=== PATIENT | female | born 1950 | race Asian ===

== ENCOUNTER → 2016-11-24 | Outpatient (CLI) | payer MEDICARE, BC ==
[2005-06-16 09:30] VITALS: TEMP 97.2
[~2016-11-24] MED LIST: ANTIVERT 25MG25 MG PO; COZAAR 25MG25 MG/TAB PO; DIABETA 5MG5 MG/TAB PO; HCTZ12.5TAB PO; PHENERGAN 25 TA25 MG PO; UNABLE
== END ==
LOC: MC.RAD 10:43
DX: Z12.31 Encounter for screening mammogram for malignant neoplasm of breast (principal)

== ENCOUNTER → 2017-12-24 | Outpatient (CLI) | payer MEDICARE, BC ==
[2005-06-16 09:30] VITALS: TEMP 97.2
== END ==
LOC: MC.RAD 14:12
DX: Z12.31 Encounter for screening mammogram for malignant neoplasm of breast (principal)

== ENCOUNTER 2017-12-27 23:01 | Inpatient (IN) | payer MEDICARE, BC ==
[~2017-12-27] VITALS: Ht 157.5 cm; Wt 57.0 kg
[2017-12-27] MEDS ORDERED: LIPITOR20 MG PO (23:16)
[2017-12-27] MEDS ORDERED: GLUCOTROL10 MG PO (23:16)
[2017-12-27] MEDS ORDERED: COZAAR 50MG50 MG/TAB PO (23:16)
[2017-12-27] MEDS ORDERED: ASPIRIN 81M81 MG/TA2 PO (23:17)
[2017-12-27] MEDS ORDERED: GLUCOPHAGE500 MG/TAB PO (23:17)
[2017-12-27 23:34] LABS: BASO % 0.4 % (0.0-2.0); EOS # 0.1 (0.0-0.7); EOS % 0.9 % (0-4.0); GRAN # 7.3 (1.4-6.5); GRAN % 68.8 % (42.2-75.2); HEMATOCRIT 39.3 % (37.0-47.0); HEMOGLOBIN 13.5 g/dl (12.5-16.0); LYMPH # 2.4 (1.2-3.4); LYMPH % 23.1 % (20.0-51.0); MEAN CELL VOLUME 85 fl (80.0-100.0); MEAN CORPUSCULAR HEMOGLOBIN 29 pg (27.0-31.0); MEAN CORPUSCULAR HGB CONC 34 g/dl (33.0-37.0); MEAN PLATELET VOLUME 10.1 fl (7.4-10.4); MONO # 0.7 (0.1-0.6); MONO % 6.5 % (1.7-9.3); PLATELET COUNT 290 K/mm3 (130-400); RED BLOOD COUNT 4.62 M/mm3 (4.10-5.30); REDCELL DISTRIBUTION WIDTH-CV 12.5 % (11.5-14.5)
[2017-12-28] VITALS (12 sets, daily range): BP systolic 90–142; BP diastolic 52–73; PULSE 79–110; TEMP 98–99.3
[2017-12-28 00:01] LABS: ALANINE AMINOTRANSFERASE 52 U/L (9-52); ALBUMIN 4.5 gm/dL (3.5-5.0); ALKALINE PHOSPHATASE 142 U/L (50-136); ANION GAP 14 mmol/L (7-16); AST,SGOT 34 U/L (15-37); BILIRUBIN,TOTAL 0.4 mg/dL (0.0-1.0); BLOOD UREA NITROGEN 15 mg/dL (7-17); C-REACTIVE PROTEIN 0.6 mg/dL (0.0-0.9); CALCIUM 10.1 mg/dL (8.4-10.2); CARBON DIOXIDE 30 mmol/L (22-30); CHLORIDE 96 mmol/L (98-107); CREATININE, serum 0.64 mg/dL (0.52-1.25); GLUCOSE 187 mg/dL (74-106); LIPASE 428 U/L (23-300); POTASSIUM 3.8 mmol/L (3.4-5.0); SODIUM 140 mmol/L (137-145); TOTAL PROTEIN 8.6 gm/dL (6.4-8.2)
[2017-12-28 00:10] LABS: TROPONIN-I < 0.012 ng/mL (0.000-0.034)
[2017-12-28 00:48] LABS: COLLECTION METHOD CLEAN CATCH
[2017-12-28 00:57] LABS: PH 7 (5-8); SQUAMOUS EPITHELIAL 0-2 /hpf; URINE APPEARANCE Clear; URINE BACTERIA None Seen /hpf; URINE BILIRUBIN Negative (NEGATIVE); URINE BLOOD Negative (NEGATIVE); URINE COLOR Straw; URINE GLUCOSE 1+ (NEGATIVE); URINE KETONE Negative (NEGATIVE); URINE LEUKOCYTE ESTERASE Negative (NEGATIVE); URINE NITRATE Negative (NEGATIVE); URINE PROTEIN(semi-quant) Negative (NEGATIVE); URINE RBC 0-2 /hpf; URINE UROBILINOGEN Negative (NEGATIVE)
[2017-12-28] MEDS ORDERED: ZYRTEC 10MG10 MG PO (03:20)
[2017-12-28] MEDS ORDERED: FLONASE SENSIM9.9 ML NS (03:20)
[2017-12-29 00:49] VITALS: BP 94/47; PULSE 98; TEMP 97.5
[2017-12-29 06:46] VITALS: BP 103/60; PULSE 92; TEMP 98.2
[2017-12-29 06:55] VITALS: BP 103/60; PULSE 92; TEMP 98.2
[2017-12-29 07:59] LABS: ALBUMIN 3.3 gm/dL (3.5-5.0); BILIRUBIN,TOTAL 0.6 mg/dL (0.0-1.0); CREATININE, serum 0.73 mg/dL (0.52-1.25); POTASSIUM 3.8 mmol/L (3.4-5.0); TOTAL PROTEIN 6.3 gm/dL (6.4-8.2)
[2017-12-29 11:17] VITALS: BP 144/86; PULSE 83; TEMP 99
[2017-12-29] MEDS ORDERED: NORCO 325 MG-51 TAB PO (12:41)
[2017-12-29] MEDS ORDERED: FLAGYL500 MG PO (12:42)
[2017-12-29] MEDS ORDERED: LEVAQUIN 750MG750 M1 PO (12:42)
[2017-12-29] MEDS ORDERED: COLACE 100100 MG/CAP PO (12:42)
[2017-12-29] MEDS ORDERED: MOTRIN 600600 MG/TAB PO (12:42)
[2017-12-29 15:11] VITALS: BP 151/83; PULSE 89; TEMP 98.7
== END 2017-12-29 15:45 | disposition home or self-care (01) | DRG 419 ==
LOC: COL.ER 23:01 → JCC 12-28 02:10
PROVIDERS: Emergency Medicine; Surgery
PROC: BF131ZZ Fluoroscopy of Gallbladder and Bile Ducts using Low Osmolar Contrast (ICD-10-PCS; 2017-12-28)
PROC: 0FT44ZZ Resection of Gallbladder, Percutaneous Endoscopic Approach (ICD-10-PCS; principal; 2017-12-28 14:30)
DX: K80.00 Calculus of gallbladder with acute cholecystitis without obstruction (principal); I10 Essential (primary) hypertension; E11.9 Type 2 diabetes mellitus without complications
CPT/HCPCS: J0694; J1100; J1170; J1956; J2270; J2370; J2405; J2543; J2704; J2710; J2765; J3010; J7030; Q9967

== ENCOUNTER → 2019-01-13 | Outpatient (CLI) | payer MEDICARE, BC ==
[~2019-01-13] MED LIST changes: +ASPIRIN 81M81 MG/TA2 PO; +COLACE 100100 MG/CAP PO; +COZAAR 50MG50 MG/TAB PO; +FLAGYL500 MG PO; +FLONASE SENSIM9.9 ML NS; +GLUCOPHAGE500 MG/TAB PO; +GLUCOTROL10 MG PO; +LEVAQUIN 750MG750 M1 PO; +LIPITOR20 MG PO; +MOTRIN 600600 MG/TAB PO; +NORCO 325 MG-51 TAB PO; +ZYRTEC 10MG10 MG PO
== END ==
LOC: MC.RAD 11:15
DX: Z12.31 Encounter for screening mammogram for malignant neoplasm of breast (principal)

== ENCOUNTER → 2021-02-16 | Outpatient (CLI) | payer MEDICARE, BC | LOC: MC.RAD 11:43 | DX: Z12.31 Encounter for screening mammogram for malignant neoplasm of breast (principal) ==

== ENCOUNTER → 2022-02-17 | Outpatient (CLI) | payer MEDICARE | LOC: MC.RAD 10:30 | DX: Z12.31 Encounter for screening mammogram for malignant neoplasm of breast (principal) ==